=== PATIENT | male | born 1995 | race African-American/Black ===

== ENCOUNTER 2020-12-08 13:38 | Emergency (ER) | payer SELFPAY ==
[~2020-12-08] VITALS: Ht 175.3 cm; Wt 74.8 kg
--- NOTE | 2020-12-08 13:38 | NUR ---
PT [address] [address] C/O OD ON FENTANYL NARCAN GIVEN APPLIQUER ZIGZAG.. PT IS AAOX3, NOT IN RESPIRATORY DISTRESS, HOOKED TO OSTEOPATHIC PHYSICIAN, KEPT RESTED AND COMFORTABLE. WILL CONTINUE TO MONITOR.
[2020-12-08] MEDS ORDERED: ONDANSETRON 4 MG TAB.RAPDIS ONE (15:12)
[2020-12-08] MEDS ORDERED: NALO4SPR NS (15:16)
[2020-12-08] MEDS ORDERED: ONDANSETRON 4 MG TAB.RAPDIS SL ONE (15:30)
--- NOTE | 2020-12-08 17:31 | NUR ---
IV removed. Catheter intact and site benign. Pressure and 4x4 applied to site. No bleeding noted. Patient given written and verbal discharge instructions. Patient verbalizes understanding of instructions. Patient is ambulatory with steady gait. Refuses offer of skilled nursing placement. Patient given list of available shelters in surrounding area.
[2020-12-08 17:33] VITALS: BP 120/65
== END 2020-12-08 17:34 | disposition home or self-care (01) ==
LOC: ER 13:41
DX: T40.411A Poisoning by fentanyl or fentanyl analogs, accidental (unintentional), initial encounter (principal); Y92.89 Other specified places as the place of occurrence of the external cause
CPT/HCPCS: 99283; Q0162